=== PATIENT | female | born 1965 | race Caucasian/White ===

== ENCOUNTER 2017-11-10 02:47 | Emergency (ER) | payer SELFPAY ==
[~2017-11-10] VITALS: Ht 170.2 cm; Wt 145.5 kg
[2017-11-10 02:54] VITALS: BP 176/100
== END 2017-11-10 03:50 | disposition left against medical advice (07) ==
LOC: ED 02:47
DX: M25.512 Pain in left shoulder (principal); M25.561 Pain in right knee; W10.9XXA Fall (on) (from) unspecified stairs and steps, initial encounter; Z53.21 Procedure and treatment not carried out due to patient leaving prior to being seen by health care provider